=== PATIENT | female | born 2000 | race Two or more races ===

== ENCOUNTER 2022-01-07 13:21 | Emergency (ER) | payer OTHER ==
[~2022-01-07] VITALS: Ht 172.7 cm; Wt 70.3 kg
--- NOTE | 2022-01-07 13:58 | NUR ---
TO ER BED 1. BIBS CHRONIC BACK PAIN GOT WORSE X 3 DAYS, RADIATING TO BOTH LEGS, TOOK PERCOCET 1 HR SUBMERSIBLE PILOT.
--- NOTE | 2022-01-07 14:42 | NUR ---
TEXT DR. HERNANDEZ FOR MRI APPROVAL.
--- NOTE | 2022-01-07 14:43 | NUR ---
MRI APPROVED, [facility] [place] NOTIFIED.
[2022-01-07 15:07] LABS: BILIRUBIN,URINE NEGATIVE (NEGATIVE); COLOR,URINE YELLOW (YELLOW); LEUKOCYTE ESTERASE ,URINE SMALL (NEGATIVE); NITRITE, URINE NEGATIVE (NEGATIVE); PROTEIN,URINE NEGATIVE (NEGATIVE); UGLUCOSE NEGATIVE (NEGATIVE); UROBILINOGEN,URINE 0.2 EU/dL (0.2)
[2022-01-07 15:29] LABS: BACTERIA,URINE 2+ /HPF (None Seen); RBC,URINE 0-2 /HPF (0-2); WBC,URINE 21-50 /HPF (0-3)
[2022-01-07 15:30] LABS: SQUAMOUS EPITHELIAL CELL,UR Moderate /HPF (None Seen)
[2022-01-07] MEDS ORDERED: DEXAMETHASONE 1 MG TABLET PO ONE (16:30)
[2022-01-07] MEDS ORDERED: IBUPROFEN 400 MG TABLET PO ONE (16:30)
[2022-01-07] MEDS ORDERED: CYCLOBENZAPRINE 10 MG TABLET PO ONE (16:30)
[2022-01-07] MEDS ORDERED: CYCLOBENZAPRINE 10 MG TABLET ONE (16:48)
[2022-01-07] MEDS ORDERED: IBUPROFEN 400 MG TABLET ONE (16:49)
[2022-01-07] MEDS ORDERED: DEXAMETHASONE 4 MG TABLET ONE (16:50)
[2022-01-07] MEDS ORDERED: DEXAMETHASONE 1 MG TABLET ONE (16:50)
[2022-01-07] MEDS ORDERED: CYCL5TAB PO (17:06)
[2022-01-07] MEDS ORDERED: METH4TAB3 PO (17:06)
[2022-01-07] MEDS ORDERED: NAPR-1192 PO (17:06)
--- NOTE | 2022-01-07 17:21 | NUR ---
Patient discharged to home in stable condition. Written and verbal after care instructions given. Patient verbalizes understanding of instruction.
[2022-01-07 17:22] VITALS: BP 123/71
== END 2022-01-07 17:22 | disposition home or self-care (01) ==
LOC: ER 13:39
DX: M51.16 Intervertebral disc disorders with radiculopathy, lumbar region (principal); J45.909 Unspecified asthma, uncomplicated; G89.29 Other chronic pain; Z88.8 Allergy status to other drugs, medicaments and biological substances; Z79.1 Long term (current) use of non-steroidal anti-inflammatories (NSAID); Z79.52 Long term (current) use of systemic steroids; Z79.899 Other long term (current) drug therapy
CPT/HCPCS: 72131; 72148; 81001; 84703; 87086; 99284; J8540 ×2

== ENCOUNTER 2023-03-23 20:20 | Emergency (ER) | payer OTHER ==
[~2023-03-23] VITALS: Ht 172.7 cm; Wt 70.3 kg
[~2023-03-23 20:20] MED LIST: CYCL5TAB PO; METH4TAB3 PO; NAPR-1192 PO
--- NOTE | 2023-03-23 21:20 | NUR ---
BIBBOYFRIEND FROM HOME W/ CC OF PELVIC PAIN AND BACK PAIN. 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 PATIENT IS AOX4. CRYING. NEEDS HELP IN MOVING. PT CAME FROM URGENT CARE DUE TO PELVIC PAIN AND WAS TOLD SHE HAS A FREE FLUID IN LEFT OVARY. PLACED COMFORTABLY IN BED. VITALS CHECKED.
--- NOTE | 2023-03-23 21:25 | NUR ---
URINE SPECIMEN SENT TO LAB
[2023-03-23] MEDS ORDERED: dexaMETHasone SOD PHOSPHATE 10 MG/ML VIAL ONE (21:29)
[2023-03-23] MEDS ORDERED: KETOROLAC TROMETHAMINE INJ 30 MG/ML VIAL IV ONE (21:30)
[2023-03-23] MEDS ORDERED: KETOROLAC TROMETHAMINE INJ 30 MG/ML VIAL ONE (21:30)
[2023-03-23] MEDS ORDERED: dexaMETHasone SOD PHOSPHATE 10 MG/ML VIAL IV ONE (21:30)
[2023-03-23 21:47] LABS: BASOPHILS % (AUTO) 0.1 % (0.0-2.0); EOSINOPHILS % (AUTO) 0.7 % (0.0-6.0); HEMATOCRIT 39 % (33-45); HEMOGLOBIN 12.7 g/dL (11.5-14.8); LYMPHOCYTES % (AUTO) 12.5 % (20.0-44.0); MEAN CORPUSCULAR HGB CONC 33 g/dl (31.0-36.0); MEAN CORPUSCULAR VOLUME 85 fL (82-100); MONOCYTES # (AUTO) 0.4 K/uL (0.1-1.30); MONOCYTES % (AUTO) 5.4 % (2.0-12.0); NEUTROPHILS # (AUTO) 6.6 K/uL (1.8-8.9); NEUTROPHILS % (AUTO) 81.3 % (43.0-81.0); PLATELET COUNT (AUTO) 191 K/uL (150-450); RED BLOOD CELL COUNT(AUTO) 4.54 MIL/uL (4.0-5.2); WHITE BLOOD COUNT (AUTO) 8.1 K/uL (4.3-11.0)
[2023-03-23 21:56] LABS: CALCIUM, SERUM 9.2 mg/dL (8.5-10.1); POTASSIUM 3.2 mmol/L (3.5-5.1)
[2023-03-23 22:00] LABS: BILIRUBIN,URINE NEGATIVE (NEGATIVE); COLOR,URINE YELLOW (YELLOW); LEUKOCYTE ESTERASE ,URINE 1+ (NEGATIVE); NITRITE, URINE NEGATIVE (NEGATIVE); PROTEIN,URINE NEGATIVE (NEGATIVE); UGLUCOSE NEGATIVE (NEGATIVE); UROBILINOGEN,URINE 0.2 EU/dL (0.2)
[2023-03-23 22:03] LABS: BACTERIA,URINE 2+ /HPF (None Seen); MUCUS,URINE Few /LPF (None Seen); RBC,URINE 0-2 /HPF (0-2)
[2023-03-23 22:04] LABS: ALBUMIN 4.2 g/dL (3.4-5.0); BILIRUBIN,DIRECT 0.1 mg/dL (0.0-0.2); BILIRUBIN,TOTAL 0.4 mg/dL (0.2-1.0)
[2023-03-23] MEDS ORDERED: CEFTRIAXONE 1GM BAG (ER ONLY) 50 ML IV ONE (22:28)
[2023-03-23] MEDS ORDERED: CEFTRIAXONE 1GM BAG (ER ONLY) 1 GM/50 ML PIGGYBACK IV ONE (22:30)
[2023-03-23] MEDS ORDERED: IBUP-1955 PO (23:18)
[2023-03-23] MEDS ORDERED: CEPH500T PO (23:18)
[2023-03-23 23:33] VITALS: BP 117/73
== END 2023-03-23 23:34 | disposition home or self-care (01) ==
LOC: ER 20:22
DX: N39.0 Urinary tract infection, site not specified (principal); R10.2 Pelvic and perineal pain; J45.909 Unspecified asthma, uncomplicated; Z88.8 Allergy status to other drugs, medicaments and biological substances; Z91.018 Allergy to other foods; Z60.2 Problems related to living alone; Z79.899 Other long term (current) drug therapy
CPT/HCPCS: 99285; 96365; 76856; 96375; 85025; 80048; 87086; 80076; 84703; 81001; 36415; 87491; 87591; J1100; J1885; J0696